=== PATIENT | female | born 1995 | race Hispanic/Latino ===

== ENCOUNTER 2018-01-15 00:03 | Inpatient (IN) | payer MEDICAID ==
[~2018-01-15] VITALS: Ht 149.9 cm; Wt 53.5 kg
[2018-01-15 00:40] LABS: APPEARANCE,URINE Cloudy (CLEAR); BILIRUBIN,URINE Negative (NEGATIVE); COLOR,URINE Yellow (YELLOW); GLUCOSE, URINE (UA) Negative (NEGATIVE); KETONES,URINE Trace mg/dL (NEGATIVE); LEUKOCYTE ESTERASE ,URINE Moderate (NEGATIVE); NITRATE,URINE Negative (NEGATIVE); OCCULT BLOOD,URINE Negative (NEGATIVE); PROTEIN,URINE Trace (NEGATIVE)
[2018-01-15] MEDS: OXYTOCIN-LR 20 UNITS/1000 ML 1,000 ML IV SCH ×2 (00:45→13:05)
[2018-01-15 00:54] LABS: BACTERIA,URINE Rare /HPF (None Seen); MUCUS,URINE Few LPF (None Seen); RBC,URINE None Seen /HPF (0-1); SQUAMOUS EPITHELIAL CELL,UR Few /HPF (0-2)
[2018-01-15 00:55] LABS: HEMATOCRIT 34.7 % (36-48); MEAN CORPUSCULAR HEMOGLOBIN 27.4 pg (27.0-33.0); MEAN CORPUSCULAR VOLUME 83.1 fL (80-100); PLATELET COUNT (AUTO) 204 K/uL (130-400); RED BLOOD CELL COUNT(AUTO) 4.17 MIL/uL (4.00-5.50); WHITE BLOOD COUNT (AUTO) 13.9 K/uL (4.8-10.8)
[2018-01-15] MEDS ORDERED: BUTORPHANOL TARTRATE 2 MG/ML ONE (00:58)
[2018-01-15] MEDS ORDERED: BUTORPHANOL TARTRATE 2 MG/ML IVP ONE ×2 (01:00→03:30)
[2018-01-15] MEDS: LACTATED RINGERS 1000ML 1,000 ML IV PRN ×2 (04:05→12:02)
[2018-01-15] MEDS ORDERED: OXYTOCIN 10 USP UNITS/ML ONE ×2 (07:18→10:04)
[2018-01-15] MEDS ORDERED: OXYTOCIN 10 USP UNITS/ML 20 UNIT in LACTATED RINGERS 1000ML 1,000 ML IV SCH (07:45)
[2018-01-15] MEDS ORDERED: DIPH,PERTUSS(ACELL),TET VAC/PF 0.5 ML VIAL IM PRN (10:00)
[2018-01-15] MEDS ORDERED: MEASLES/MUMPS/RUBELLA VACCINE, LIVE 0.5 ML/VIAL SQ PRN (10:00)
[2018-01-15] MEDS ORDERED: LANOLIN 30GM OINTMENT TP PRN (10:00)
[2018-01-15] MEDS ORDERED: BENZOCAINE/LANOLIN/ALOE VERA 60 ML AEROSOL TP PRN (10:00)
[2018-01-15] MEDS ORDERED: WITCH HAZEL 1 PAD TP PRN (10:00)
[2018-01-15] MEDS ORDERED: HYDROCODONE/ACETAMINOPHEN 5/325 MG TAB PO PRN (10:00)
[2018-01-15] MEDS ORDERED: ACETAMINOPHEN-CODEINE 300/30MG TAB PO PRN (10:00)
[2018-01-15 11:50] VITALS: BP 118/73
[2018-01-15] MEDS: IBUPROFEN 800 MG TAB PO PRN (13:05)
[2018-01-15 15:56] VITALS: BP 101/52
[2018-01-15 19:59] VITALS: BP 109/67
[2018-01-15] MEDS: DOCUSATE SODIUM 100 MG CAP PO SCH (21:08)
[2018-01-16] VITALS (7 sets, daily range): BP systolic 95–124; BP diastolic 61–78
[2018-01-16] MEDS: IBUPROFEN 800 MG TAB PO PRN ×2 (03:40→16:07)
[2018-01-16 05:15] LABS: HEMATOCRIT 24.2 % (36-48); MEAN CORPUSCULAR HEMOGLOBIN 28.6 pg (27.0-33.0); MEAN CORPUSCULAR HGB CONC 34.6 g/dL (32.0-36.0); MEAN CORPUSCULAR VOLUME 82.5 fL (80-100); NUCLEATED RED BLOOD CELLS 0.1 % (0.0-0.19); PLATELET COUNT (AUTO) 164 K/uL (130-400); RED BLOOD CELL COUNT(AUTO) 2.94 MIL/uL (4.00-5.50); RED CELL DISTRIBUTION WIDTH 13.7 % (11.0-15.5); WHITE BLOOD COUNT (AUTO) 13.2 K/uL (4.8-10.8)
[2018-01-16 07:32] LABS: HEPATITIS Bs ANTIGEN SCREEN P Negative (Negative)
[2018-01-16] MEDS: ACETAMINOPHEN 325 MG TAB PO PRN (09:20)
[2018-01-16] MEDS: DOCUSATE SODIUM 100 MG CAP PO SCH ×2 (09:20→20:40)
[2018-01-17] MEDS: IBUPROFEN 800 MG TAB PO PRN (04:00)
[2018-01-17 04:41] VITALS: BP 120/79
[2018-01-17 08:09] VITALS: BP 106/77
[2018-01-17] MEDS: ACETAMINOPHEN 325 MG TAB PO PRN (09:20)
[2018-01-17] MEDS: DOCUSATE SODIUM 100 MG CAP PO SCH (09:20)
[2018-01-17 11:42] VITALS: BP 106/69
== END 2018-01-17 12:35 | disposition home or self-care (01) | DRG 560 ==
LOC: EDH 00:03 → LDH 00:04 → OBSVTOIN 00:40 → WSH 11:50
PROVIDERS: ADMIT Obstetrics & Gynecology; ATTEND Obstetrics & Gynecology
PROC: 10E0XZZ Delivery of Products of Conception, External Approach (ICD-10-PCS; principal; 2018-01-15)
PROC: 0W8NXZZ Division of Female Perineum, External Approach (ICD-10-PCS; 2018-01-15)
PROC: 3E0234Z Introduction of Serum, Toxoid and Vaccine into Muscle, Percutaneous Approach (ICD-10-PCS; 2018-01-15)
PROC: 3E0134Z Introduction of Serum, Toxoid and Vaccine into Subcutaneous Tissue, Percutaneous Approach (ICD-10-PCS; 2018-01-15)
DX: O90.81 Anemia of the puerperium (principal); D62 Acute posthemorrhagic anemia; Z37.0 Single live birth; Z3A.39 39 weeks gestation of pregnancy; Z23 Encounter for immunization
CPT/HCPCS: 36415; 81001; 85027; 86592; 86850; 86900; 86901; 87340; 90707; 90715; A4351; J0595; J2590; J7030; J7120

== ENCOUNTER 2023-06-04 09:07 | Emergency (ER) | payer MEDICAID ==
[~2023-06-04] VITALS: Ht 149.9 cm; Wt 43.2 kg
[2023-06-04 09:11] VITALS: BP 112/66; PULSE 65; RESP 16; O2SAT 100
== END 2023-06-04 13:21 | disposition left against medical advice (07) ==
LOC: EDH 09:07
DX: T78.49XA Other allergy, initial encounter (principal); Z98.890 Other specified postprocedural states; X58.XXXA Exposure to other specified factors, initial encounter
CPT/HCPCS: 99281